=== PATIENT | female | born 1930 | race Caucasian/White ===

== ENCOUNTER 2017-03-13 06:49 | Inpatient (IN) | payer OTHER ==
[~2017-03-13] VITALS: Ht 152.4 cm; Wt 53.0 kg
[2017-03-13 08:43] LABS: BASOPHIL % 0.3 % (0-2); PLATELET COUNT 274 x10^3mcL (130-400)
[2017-03-13 08:47] LABS: RED CELL DISTRIBUTION WIDTH 16.9 % (11.5-14.5)
[2017-03-13 08:55] LABS: CARBON DIOXIDE 30.6 mmol/L (21-32); CHLORIDE SERUM 102 mmol/L (98-107); CREATININE SERUM 1.6 mg/dL (0.6-1.0); GLUCOSE SERUM 145 mg/dL (74-106); POTASSIUM SERUM 3.9 mmol/L (3.5-5.1); SODIUM SERUM 138 mmol/L (136-145)
[2017-03-13 08:59] LABS: ALKALINE PHOSPHATASE 54 U/L (46-116); ALT/SGPT 10 U/L (14-59); AST/SGOT 24 U/L (15-37); BILIRUBIN TOTAL 0.38 mg/dL (0.20-1.00); TOTAL PROTEIN, SERUM 6.5 g/dL (6.4-8.2)
[2017-03-13 09:00] LABS: ALBUMIN 2.9 g/dL (3.4-5.0)
[2017-03-13] MEDS ORDERED: DURAGESIC1 EAC1 TD (09:12)
[2017-03-13] MEDS ORDERED: DILAUDID2 MG PO (09:14)
[2017-03-13] MEDS ORDERED: CYCLOBENZAPRINE5 MG (09:14)
[2017-03-13] MEDS ORDERED: ZESTRIL5 MG PO (09:14)
[2017-03-13] MEDS ORDERED: PANTOPRAZOLE SO40 M1 PO (09:15)
[2017-03-13] MEDS ORDERED: MAXZIDE-251 TAB PO (09:16)
[2017-03-13] MEDS ORDERED: PREDNISONE2.5 MG PO (09:16)
[2017-03-13] MEDS ORDERED: LOVASTATIN20 MG PO (09:17)
[2017-03-13] MEDS ORDERED: AMBIEN10 MG PO (09:17)
[2017-03-13] MEDS ORDERED: METOPROLOL SUCC50 M2 PO (09:18)
[2017-03-13] MEDS ORDERED: PAXIL10 MG PO (09:18)
[2017-03-13] MEDS ORDERED: DILTIAZEM HCL120 M2 PO (09:19)
[2017-03-13 11:00] VITALS: BP 176/95
[2017-03-13 11:37] VITALS: BP 176/95
[2017-03-13 12:36] LABS: MAGNESIUM 1.3 mg/dL (1.8-2.4); PHOSPHOROUS 3.2 mg/dL (2.5-4.9)
[2017-03-13 12:43] LABS: CHOLESTEROL/HDL RATIO 1.9
[2017-03-13 12:45] LABS: T3 TOTAL 0.71 ng/mL
[2017-03-13 12:46] LABS: FREE T4 0.99 ng/dL (0.76-1.46); FREE THYROXINE INDEX 2.4 ug/dL (1.4-4.5); T4(THYROXINE) 6.7 ug/dL (4.7-13.3)
[2017-03-13 17:21] VITALS: BP 133/73
[2017-03-13 21:22] VITALS: BP 170/84
[2017-03-14] VITALS (7 sets, daily range): BP systolic 126–149; BP diastolic 53–102
[2017-03-14 02:57] LABS: microscopic required? YES; urine erythrocyte 1+ (NEGATIVE)
[2017-03-14 03:08] LABS: AMPHETAMINE QUAL UR NONE DETECTED (NEG <=1000)
[2017-03-14 06:14] LABS: BASOPHIL % 0.8 % (0-2); PLATELET COUNT 216 x10^3mcL (130-400)
[2017-03-14 06:34] LABS: CARBON DIOXIDE 30.5 mmol/L (21-32); CHLORIDE SERUM 104 mmol/L (98-107); CREATININE SERUM 1.2 mg/dL (0.6-1.0); GLUCOSE SERUM 94 mg/dL (74-106); POTASSIUM SERUM 3.4 mmol/L (3.5-5.1); SODIUM SERUM 140 mmol/L (136-145)
[2017-03-14 06:48] LABS: RED CELL DISTRIBUTION WIDTH 16.6 % (11.5-14.5)
[2017-03-14 11:14] LABS: TOTAL IRON BINDING CAPACITY 248 ug/dL (250-450)
[2017-03-14 11:20] LABS: IRON 23 ug/dL (50-170)
[2017-03-15 05:42] VITALS: BP 140/52
[2017-03-15 07:18] LABS: CALCIUM 8.2 mg/dL (8.5-10.1); CARBON DIOXIDE 29.7 mmol/L (21-32); CHLORIDE SERUM 106 mmol/L (98-107); CREATININE SERUM 1.1 mg/dL (0.6-1.0); GLUCOSE SERUM 92 mg/dL (74-106); POTASSIUM SERUM 3.6 mmol/L (3.5-5.1); SODIUM SERUM 142 mmol/L (136-145)
[2017-03-15 07:25] LABS: BASOPHIL % 0.5 % (0-2); PLATELET COUNT 205 x10^3mcL (130-400)
[2017-03-15 07:26] LABS: RED CELL DISTRIBUTION WIDTH 17.2 % (11.5-14.5)
[2017-03-15 10:06] VITALS: BP 130/58
[2017-03-15 13:44] VITALS: BP 129/72
[2017-03-15 17:01] VITALS: BP 120/70
[2017-03-15 20:58] VITALS: BP 120/63
[2017-03-16 05:43] VITALS: BP 137/72
[2017-03-16 06:21] LABS: BASOPHIL % 0.4 % (0-2); PLATELET COUNT 223 x10^3mcL (130-400)
[2017-03-16 06:42] LABS: CALCIUM 8.4 mg/dL (8.5-10.1); CARBON DIOXIDE 30.4 mmol/L (21-32); CHLORIDE SERUM 109 mmol/L (98-107); CREATININE SERUM 1.1 mg/dL (0.6-1.0); GLUCOSE SERUM 104 mg/dL (74-106); POTASSIUM SERUM 3.7 mmol/L (3.5-5.1); SODIUM SERUM 145 mmol/L (136-145)
[2017-03-16 06:53] LABS: RED CELL DISTRIBUTION WIDTH 17.1 % (11.5-14.5)
[2017-03-16 18:10] VITALS: BP 119/57
[2017-03-16 21:31] VITALS: BP 92/50
[2017-03-17 04:59] VITALS: BP 108/47
[2017-03-17 07:09] LABS: CARBON DIOXIDE 24.3 mmol/L (21-32); CHLORIDE SERUM 103 mmol/L (98-107); CREATININE SERUM 1.1 mg/dL (0.6-1.0); GLUCOSE SERUM 132 mg/dL (74-106); MAGNESIUM 1.6 mg/dL (1.8-2.4); PHOSPHOROUS 3.2 mg/dL (2.5-4.9); SODIUM SERUM 137 mmol/L (136-145)
[2017-03-17 07:58] LABS: BASOPHIL % 0.3 % (0-2); PLATELET COUNT 227 x10^3mcL (130-400)
[2017-03-17 07:59] LABS: RED CELL DISTRIBUTION WIDTH 17.2 % (11.5-14.5)
[2017-03-17 09:16] VITALS: BP 123/61
[2017-03-17 15:12] VITALS: BP 119/73
[2017-03-17 22:15] VITALS: BP 96/49
[2017-03-18] VITALS (7 sets, daily range): BP systolic 106–134; BP diastolic 44–69; Ht 152.4 cm; Wt 53.0 kg
[2017-03-18 06:45] LABS: CALCIUM 8.4 mg/dL (8.5-10.1); CARBON DIOXIDE 23.4 mmol/L (21-32); CHLORIDE SERUM 106 mmol/L (98-107); CREATININE SERUM 1.1 mg/dL (0.6-1.0); GLUCOSE SERUM 121 mg/dL (74-106); MAGNESIUM 2.1 mg/dL (1.8-2.4); POTASSIUM SERUM 3.4 mmol/L (3.5-5.1); SODIUM SERUM 137 mmol/L (136-145)
[2017-03-18 08:25] LABS: BASOPHIL % 0.5 % (0-2); PLATELET COUNT 215 x10^3mcL (130-400)
[2017-03-18 08:26] LABS: RED CELL DISTRIBUTION WIDTH 17.2 % (11.5-14.5)
[2017-03-18 09:23] LABS: rbc morphology (normal/abnorm) ABNORMAL (NORMAL)
[2017-03-19 03:23] LABS: BASOPHIL % 0.6 % (0-2); PLATELET COUNT 220 x10^3mcL (130-400)
[2017-03-19 03:24] LABS: RED CELL DISTRIBUTION WIDTH 17.1 % (11.5-14.5)
[2017-03-19 03:39] LABS: CALCIUM 8.3 mg/dL (8.5-10.1); CARBON DIOXIDE 25.7 mmol/L (21-32); CHLORIDE SERUM 107 mmol/L (98-107); CREATININE SERUM 1.3 mg/dL (0.6-1.0); GLUCOSE SERUM 105 mg/dL (74-106); MAGNESIUM 1.5 mg/dL (1.8-2.4); PHOSPHOROUS 3.3 mg/dL (2.5-4.9); POTASSIUM SERUM 3.8 mmol/L (3.5-5.1); SODIUM SERUM 138 mmol/L (136-145)
[2017-03-19 06:00] VITALS: BP 137/73; BP 140/72
[2017-03-19 09:13] VITALS: BP 149/89
[2017-03-19 16:29] VITALS: BP 148/86
[2017-03-19 19:30] VITALS: BP 153/90
[2017-03-20] VITALS: BP 167/92
[2017-03-20 05:28] LABS: BASOPHIL % 0.3 % (0-2); PLATELET COUNT 271 x10^3mcL (130-400)
[2017-03-20 05:41] LABS: CALCIUM 8.8 mg/dL (8.5-10.1); CARBON DIOXIDE 26.5 mmol/L (21-32); CHLORIDE SERUM 106 mmol/L (98-107); CREATININE SERUM 1.2 mg/dL (0.6-1.0); GLUCOSE SERUM 180 mg/dL (74-106); MAGNESIUM 1.1 mg/dL (1.8-2.4); PHOSPHOROUS 3.5 mg/dL (2.5-4.9); POTASSIUM SERUM 3.1 mmol/L (3.5-5.1); SODIUM SERUM 141 mmol/L (136-145)
[2017-03-20 06:00] VITALS: BP 120/67
[2017-03-20 08:00] VITALS: BP 129/67
[2017-03-20 14:25] VITALS: BP 128/85
[2017-03-20 21:31] VITALS: BP 139/85
[2017-03-21 05:13] VITALS: BP 158/82
[2017-03-21 06:15] LABS: PLATELET COUNT 244 x10^3mcL (130-400)
[2017-03-21 06:41] LABS: CALCIUM 8.8 mg/dL (8.5-10.1); CARBON DIOXIDE 26.3 mmol/L (21-32); CHLORIDE SERUM 101 mmol/L (98-107); GLUCOSE SERUM 202 mg/dL (74-106); MAGNESIUM 1.7 mg/dL (1.8-2.4); PHOSPHOROUS 3.2 mg/dL (2.5-4.9); POTASSIUM SERUM 3.1 mmol/L (3.5-5.1); SODIUM SERUM 137 mmol/L (136-145)
[2017-03-21 07:10] LABS: BASOPHIL % 0 % (0-2); RED CELL DISTRIBUTION WIDTH 17.4 % (11.5-14.5)
[2017-03-21 10:15] VITALS: BP 141/69
[2017-03-21 14:00] VITALS: BP 138/63
[2017-03-21 16:21] VITALS: BP 142/70
[2017-03-21 21:36] VITALS: BP 143/70
[2017-03-22 05:40] VITALS: BP 126/52
[2017-03-22 07:28] LABS: BASOPHIL % 0.2 % (0-2); PLATELET COUNT 234 x10^3mcL (130-400); RED CELL DISTRIBUTION WIDTH 18.4 % (11.5-14.5)
[2017-03-22 07:36] LABS: CARBON DIOXIDE 30.8 mmol/L (21-32); CHLORIDE SERUM 104 mmol/L (98-107); CREATININE SERUM 0.9 mg/dL (0.6-1.0); GLUCOSE SERUM 126 mg/dL (74-106); MAGNESIUM 1.6 mg/dL (1.8-2.4); PHOSPHOROUS 2.9 mg/dL (2.5-4.9); POTASSIUM SERUM 3.8 mmol/L (3.5-5.1); SODIUM SERUM 140 mmol/L (136-145)
[2017-03-22 09:43] VITALS: BP 133/66
[2017-03-22 14:13] VITALS: BP 132/74
[2017-03-22 17:11] VITALS: BP 156/77
[2017-03-22 22:22] VITALS: BP 168/95
[2017-03-23 06:36] VITALS: BP 145/76
[2017-03-23 07:48] LABS: BASOPHIL % 0.4 % (0-2); PLATELET COUNT 244 x10^3mcL (130-400)
[2017-03-23 07:58] LABS: CALCIUM 8.8 mg/dL (8.5-10.1); CARBON DIOXIDE 30.7 mmol/L (21-32); CHLORIDE SERUM 105 mmol/L (98-107); CREATININE SERUM 0.8 mg/dL (0.6-1.0); GLUCOSE SERUM 81 mg/dL (74-106); MAGNESIUM 1.4 mg/dL (1.8-2.4); PHOSPHOROUS 2.9 mg/dL (2.5-4.9); POTASSIUM SERUM 3.3 mmol/L (3.5-5.1); SODIUM SERUM 141 mmol/L (136-145)
[2017-03-23 08:03] LABS: RED CELL DISTRIBUTION WIDTH 18.8 % (11.5-14.5)
[2017-03-23 09:10] VITALS: BP 151/75
[2017-03-23 12:59] VITALS: BP 146/81
[2017-03-23 17:46] VITALS: BP 169/87
[2017-03-23 21:17] VITALS: BP 139/92
[2017-03-24 09:00] VITALS: BP 167/81
[2017-03-24 13:43] LABS: CALCIUM 8.9 mg/dL (8.5-10.1); CARBON DIOXIDE 31.5 mmol/L (21-32); CHLORIDE SERUM 105 mmol/L (98-107); GLUCOSE SERUM 88 mg/dL (74-106); POTASSIUM SERUM 4.9 mmol/L (3.5-5.1); SODIUM SERUM 138 mmol/L (136-145)
[2017-03-24] MEDS ORDERED: ANUHCC TOP (14:11)
[2017-03-24] MEDS ORDERED: BACOINT TOP (14:11)
[2017-03-24 14:16] VITALS: BP 141/81
[2017-03-24] MEDS ORDERED: PRE5 PO (14:17)
[2017-03-24] MEDS ORDERED: IPRATROPIUM BROM3 M2 HHN (14:19)
[2017-03-24] MEDS ORDERED: ALBUD HHN (14:20)
[2017-03-24 14:53] VITALS: BP 141/81
== END 2017-03-24 17:43 | disposition home health service (06) | DRG 329 ==
LOC: ED 06:49 → DU 10:19 → IC 10:19 → DU 11:09 → IC 03-19 16:13 → DU 03-20 14:20
PROVIDERS: Family Medicine Sports Medicine; Internal Medicine Gastroenterology; Specialist; Student in an Organized Health Care Education/Training Program; ADMIT Family Medicine
PROC: 0JBP0ZZ Excision of Left Lower Leg Subcutaneous Tissue and Fascia, Open Approach (ICD-10-PCS; 2017-03-14)
PROC: 0D758ZZ Dilation of Esophagus, Via Natural or Artificial Opening Endoscopic (ICD-10-PCS; 2017-03-14)
PROC: 0JBN0ZZ Excision of Right Lower Leg Subcutaneous Tissue and Fascia, Open Approach (ICD-10-PCS; principal; 2017-03-14 08:00)
PROC: 0DBF8ZZ Excision of Right Large Intestine, Via Natural or Artificial Opening Endoscopic (ICD-10-PCS; 2017-03-16)
PROC: 0DBL8ZX Excision of Transverse Colon, Via Natural or Artificial Opening Endoscopic, Diagnostic (ICD-10-PCS; 2017-03-16)
PROC: 30233N1 Transfusion of Nonautologous Red Blood Cells into Peripheral Vein, Percutaneous Approach (ICD-10-PCS; 2017-03-18)
PROC: 05HN33Z Insertion of Infusion Device into Left Internal Jugular Vein, Percutaneous Approach (ICD-10-PCS; 2017-03-19)
PROC: B544ZZA Ultrasonography of Left Jugular Veins, Guidance (ICD-10-PCS; 2017-03-19)
PROC: 0DTF0ZZ Resection of Right Large Intestine, Open Approach (ICD-10-PCS; 2017-03-19)
DX: C18.4 Malignant neoplasm of transverse colon (principal); N17.0 Acute kidney failure with tubular necrosis; J96.01 Acute respiratory failure with hypoxia; E43 Unspecified severe protein-calorie malnutrition; K63.3 Ulcer of intestine; D62 Acute posthemorrhagic anemia; L97.829 Non-pressure chronic ulcer of other part of left lower leg with unspecified severity; L97.819 Non-pressure chronic ulcer of other part of right lower leg with unspecified severity; J44.1 Chronic obstructive pulmonary disease with (acute) exacerbation; D12.2 Benign neoplasm of ascending colon; K57.30 Diverticulosis of large intestine without perforation or abscess without bleeding; K64.8 Other hemorrhoids; K31.7 Polyp of stomach and duodenum; K22.8 Other specified diseases of esophagus; K22.4 Dyskinesia of esophagus; L85.3 Xerosis cutis; I48.2 Chronic atrial fibrillation; I87.2 Venous insufficiency (chronic) (peripheral); I16.0 Hypertensive urgency; I10 Essential (primary) hypertension; D64.9 Anemia, unspecified; E83.42 Hypomagnesemia; E11.9 Type 2 diabetes mellitus without complications; M54.5 Low back pain; G89.29 Other chronic pain; F32.9 Major depressive disorder, single episode, unspecified; Z79.52 Long term (current) use of systemic steroids; Z68.22 Body mass index [BMI] 22.0-22.9, adult; K58.9 Irritable bowel syndrome, unspecified
CPT/HCPCS: 43235; 45378; 83880; 84439; 87046; 87046-59; 88344; 97110-GP; 97116-GP; 97530-GP; C1769; J0330; J0360; J0690; J0696; J1170; J1200; J1610; J1644; J1720; J1940; J1956; J2001; J2060; J2250; J2270; J2310; J2405; J2710; J3010; J3475; J3480; J3490; J7030; J7040; J7120; J7506; J7512; J7613; P9016; Q0092; Q0163